=== PATIENT | male | born 1975 | race Caucasian/White ===

== ENCOUNTER 2016-08-29 16:10 | Emergency (ER) | payer BC ==
--- NOTE | 2016-08-29 18:59 | UC ---
Throat Pain/Nasal Js HPI - HPI Summary HPI Summary: PATIENT ARRIVES TO ED WITH CC OF SORE THROAT X 2 DAYS AND MINOR FEVER. PATIENT ALSO ENDORSES MILD COUGH. DENIES CHEST PAIN, PRESSURE OR CHEST CONGESTION. HE STATES HIS THROAT IS 10/10 PAIN AND FEELS LIKE GLASS SHARDS. PATIENT ALSO ENDORSES MUSCLE ACHES AND CHILLS. DENIES FLU SHOT THIS YEAR. OTHERWISE HEALTHY AND TAKES NO MEDICATIONS. - History of Current Complaint Chief Complaint: UCGeneralIllness Stated Complaint: SORE THROAT FEVER Time Seen by Provider: 08/29/16 18:11 Hx Obtained From: Patient Onset/Duration: Sudden Onset Severity: Moderate Pain Intensity: 4 Pain Scale Used: 0-10 Numeric Associated Signs & Symptoms: Positive: Hoarseness - Epiglottits Risk Factors Epiglottis Risk Factors: Negative - Allergies/Home Medications Allergies/Adverse Reactions: Allergies Allergy/AdvReac Type Severity Reaction Status Date / Time No Known Allergies Allergy Verified 08/29/16 18:13 Home Medications: Home Medications NK [No Home Medications Reported] 08/29/16 [History Confirmed 08/29/16] PMH/Surg Hx/FS Hx/Imm Hx Previously Healthy: Yes - Surgical History Surgical History: None - Family History Known Family History: Positive: Unknown - Social History Occupation: Employed Full-time Lives: With Family Alcohol Use: Weekly Alcohol Amount: 2X/ week Substance Use Type: None Smoking Status (MU): Light Every Day Tobacco Smoker Amount Used/How Often: 1/2 pack/ day Household Exposure Type: Cigarettes - Immunization History Most Recent Influenza Vaccination: never Review of Systems Constitutional: Fever, Fatigue Skin: Negative ENT: Sore Throat Respiratory: Cough Cardiovascular: Negative Motor: Negative Neurovascular: Negative Musculoskeletal: Negative Psychological: Negative All Other Systems Reviewed And Are Negative: Yes Physical Exam Triage Information Reviewed: Yes Appearance: Well-Appearing, No Pain Distress, Well-Nourished Vital Signs: Initial Vital Signs Temp 99.6 F 08/29/16 18:14 Pulse 76 08/29/16 18:14 Resp 18 08/29/16 18:14 BP 135/75 08/29/16 18:14 Pulse Ox 97 08/29/16 18:14 Vital Signs Reviewed: Yes Eye Exam: Normal Eyes: Positive: Conjunctiva Clear ENT: Positive: Pharyngeal erythema, Tonsillar swelling Dental Exam: Normal Neck exam: Normal Respiratory Exam: Normal Respiratory: Positive: Chest non-tender, Normal breath sounds Cardiovascular: Positive: RRR, No Murmur Neurological Exam: Normal Neurological: Positive: Alert Psychological Exam: Normal Psychological: Positive: Normal Response To Family Skin Exam: Normal Throat Pain/Nasal Course/Dx - Course Course Of Treatment: FLU AND STREP NEGATIVE. PATIENT ENCOURAGED TO TAKE TYLENOL FOR PAIN AND USE LOZENGES OTC FOR THROAT DISCOMFORT. PATIENT AGREES AND IS OK FOR DISCHARGE. - Differential Dx/Diagnosis Differential Diagnosis/HQI/PQRI: Peritonsillar Abscess, Pharyngitis, Sinusitis, URI Provider Diagnoses: PHARYNGITIS Discharge - Discharge Plan Condition: Stable Disposition: HOME Patient Education Materials: Pharyngitis (ED) Referrals: No Primary Care Phys,NOPCP [Primary Care Provider] - Additional Instructions: How can I manage my symptoms? Use lozenges, ice, soft foods, or popsicles to soothe your throat. Drink juice, milk shakes, or soup if your throat is too sore to eat solid food. Drinking liquids can also help prevent dehydration. Gargle with salt water. Mix teaspoon salt in a 1 cup of warm water and gargle. This may help reduce swelling in your throat. Do not smoke. Nicotine and other chemicals in cigarettes and cigars can cause lung damage and make your symptoms worse. Ask your healthcare provider for information if you currently smoke and need help to quit. E-cigarettes or smokeless tobacco still contain nicotine. Talk to your healthcare provider before you use these products. How do I prevent the spread of strep throat? Wash your hands often. Use soap and water. Wash your hands after you use the bathroom, change a child's diapers, or sneeze. Wash your hands before you prepare or eat food. Do not share food or drinks. Replace your toothbrush after you have taken antibiotics for 24 hours.
[2016-08-29 19:09] VITALS: BP 133/74
== END 2016-08-29 18:55 | disposition home or self-care (01) ==
LOC: UCEAST 16:10
DX: J02.9 Acute pharyngitis, unspecified (principal); F17.210 Nicotine dependence, cigarettes, uncomplicated
CPT/HCPCS: 87502; 87651; 99202; G0463